=== PATIENT | male | born 1990 | race Hispanic/Latino ===

== ENCOUNTER 2022-09-04 21:18 | Emergency (ER) | payer OTHER ==
[~2022-09-04] VITALS: Ht 175.3 cm; Wt 92.5 kg
[2022-09-04 21:54] LABS: APPEARANCE,URINE CLEAR (CLEAR); BILIRUBIN,URINE NEGATIVE (NEGATIVE); COLOR,URINE LIGHT-YELLOW (YELLOW); GLUCOSE, URINE (UA) NEGATIVE (NEGATIVE); KETONES,URINE NEGATIVE (NEGATIVE); LEUKOCYTE ESTERASE ,URINE NEGATIVE Leu/uL (NEGATIVE); NITRATE,URINE NEGATIVE (NEGATIVE); OCCULT BLOOD,URINE NEGATIVE (NEGATIVE); PH,URINE 5.5 (5.0-8.0); PROTEIN,URINE NEGATIVE (NEGATIVE); UROBILINOGEN,URINE 0.2 mg/dL (0.2-1.0)
[2022-09-04] MEDS ORDERED: ACETAMINOPHEN 325 MG TAB PO ONE (22:00)
[2022-09-04] MEDS ORDERED: 0.9%NACL 1000ML 1,000 ML IV ONE (22:30)
[2022-09-04 22:31] LABS: BASOPHILS % (AUTO) 0.3 % (0.0-5.0); EOSINOPHILS % (AUTO) 0.3 % (0.0-8.0); HEMATOCRIT 45.7 % (42-54); LYMPHOCYTES % (AUTO) 20.6 % (21.0-51.0); MEAN CORPUSCULAR HEMOGLOBIN 28.6 pg (27.0-33.0); MEAN CORPUSCULAR HGB CONC 34.6 g/dL (32.0-36.0); MEAN CORPUSCULAR VOLUME 82.8 fL (79-99); MONOCYTES % (AUTO) 12.7 % (3.0-13.0); PLATELET COUNT (AUTO) 284 K/uL (130-400); RED BLOOD CELL COUNT(AUTO) 5.52 MIL/uL (4.50-6.20); RED CELL DISTRIBUTION WIDTH 13.3 % (11.0-15.5); WHITE BLOOD COUNT (AUTO) 7.5 K/uL (4.8-10.8)
[2022-09-04 22:49] LABS: POTASSIUM 3.6 mmol/L (3.5-5.1); TOTAL PROTEIN, SERUM 7.8 g/dL (6.0-8.3)
[2022-09-05 01:27] VITALS: BP 122/56
[2022-09-05] MEDS ORDERED: OSELTAMIVIR PHOSPHATE 75 MG CAP PO SCH (02:00)
[2022-09-05] MEDS ORDERED: OSEL75 PO (03:07)
[2022-09-05] MEDS ORDERED: IBUP-2077 PO (03:07)
== END 2022-09-05 04:24 | disposition home or self-care (01) ==
LOC: EDH 21:18
DX: U07.1 COVID-19 (principal); J10.1 Influenza due to other identified influenza virus with other respiratory manifestations; N49.2 Inflammatory disorders of scrotum
CPT/HCPCS: 99285; 96360; 71045; 87635; 80053; 85025; 87040 ×2; 87804 ×2; 83605; 87797; 87486; 81003; 36415; 76870; C9803; J7030